=== PATIENT | female | born 1995 | race Two or more races ===

== ENCOUNTER → 2023-09-21 14:04 | Outpatient (REF) | payer BC, SELFPAY ==
[2023-09-21 17:44] LABS: IgG 1045 mg/dl (700-1600)
[2023-09-21 19:08] LABS: Hepatitis B Surface Antibody Negative
[2023-09-21 19:35] LABS: Rubella Negative
== END ==
LOC: REG 14:04
PROVIDERS: ATTENDING PHYSICIAN Anesthesiology
DX: Z23 Encounter for immunization (principal)
CPT/HCPCS: 36415; 82784; 86706; 86735; 86762; 86765; 86787

== ENCOUNTER → 2024-04-09 15:11 | Outpatient (REF) | payer BC, SELFPAY ==
[2024-04-09 17:33] LABS: Hepatitis B Surface Antibody Positive
[2024-04-11 11:49] LABS: Varicella Zoster IgG (VZV) Positive
== END ==
LOC: REG 15:11
PROVIDERS: ATTENDING PHYSICIAN Anesthesiology
DX: Z01.84 Encounter for antibody response examination (principal)
CPT/HCPCS: 36415; 86706; 86787

== ENCOUNTER 2024-09-20 11:41 | Emergency (ER) | payer BC, SELFPAY ==
[2024-09-20] VITALS (7 sets, daily range): BP systolic 92–109; BP diastolic 59–72; BMI 28.7
--- NOTE | 2024-09-20 12:14 | ED.GENMED ---
History of Present Illness
General
Chief Complaint: Abdominal Pain
Source: patient and family
Exam Limitations: none
Time Seen by Provider: 09/20/24 11:59
Nursing documentation reviewed up to this point in time: agreed with
History of Present Illness
History of Present Illness:
28-year-old female with past medical history of lymphoma currently in remission who presents to the emergency department with father for evaluation of abdominal pain with nausea/vomiting/diarrhea. Patient reports that she was in her normal state of
health last night; she recently returned from a trip to the [facility] a few days ago, last night had chicken for dinner but nothing unusual. Woke up around 4 AM with profuse watery nonbloody diarrhea and abdominal pain radiating diffusely. She has
had significant nausea and dry heaves. She says that the symptoms have been persistent throughout the day and so she came to the ER for evaluation. She did take a Zofran at home which provided some improvement in nausea. She denies any
significant headache or neck pain/stiffness. Denies fever. She denies urinary symptoms. She is currently on her menstrual period and has some spotting. She denies similar issues in the past. She denies prior abdominal surgeries. Denies any
known sick contacts; no one else at home is sick after eating dinner last night.
Past History
Past History
ED Past Medical History: Cancer
ED Past Surgical History: Other (Chemo-Port placement)
Social History
Tobacco: Non-smoker
Alcohol: None
Drug: None
Personal: Single
Living: with family
Review of Systems
Review of Systems
All Other Systems: ROS reviewed and negative except as documented in HPI and ROS
Constitutional: Denies fever
Respiratory: Denies trouble breathing
Cardiac: Denies chest pain
ABD/GI: Reports abdominal pain, nausea, vomiting and diarrhea; Denies bloody stools
: Reports bleeding (Spotting); Denies dysuria, frequency or flank pain
Musculoskeletal: Denies neck pain
Neurological: Denies dizzy or headache
Phy Exam
Physical Exam
Physical Exam:
General: Awake, alert, oriented x3; appears mildly uncomfortable but nontoxic
Head: Normocephalic, atraumatic
Eyes: Conjunctiva normal, EOMI, pupils equal round and reactive to light bilaterally
Throat: Airway intact, slightly dry mucous membranes
Neck: Trachea midline, supple without meningismus
Lungs: Clear to auscultation bilaterally, no wheezing, rales, rhonchi
Heart: Tachycardia with regular rhythm, no murmurs, gallops, or rubs; chest wall port in place
Abd: Soft, non distended, diffusely tender somewhat more pronounced right upper quadrant, no palpable masses appreciated
Neuro: No gross deficits
Skin: no rash on the abdomen
Extremities: Warm and well-perfused
Scores
Heart Failure Risk
Heart Failure Risk Score: Not Applicable
Heart Score for Chest Pain Patients
STEMI patient?: Not applicable
Withdrawal Assessment of Alcohol
Withdrawal Assessment Completed?: Not applicable
Course
Orders/Labs/Results
Orders:
Orders
09/20/24 12:13
Electrocardiogram (*1) Urgent
Reason for Study: QTc Monitoring
CT Abd/pelvis W Iv Cont Urgent
Comment:
Reason For Exam: periumbilical abd pain, diffusely TTP; N/V/D
EKG- Treatment ONCE
0.9% Sodium Chloride 1000 ml [Nss] 1,000 ml IV BOLUS
Test Result ONCE
09/20/24 12:57
Morphine Sulfate 4 mg IV NOW STA
Ondansetron Injectable [Zofran] 4 mg IV NOW STA
09/20/24 13:04
COVID-19 Antigen Urgent
Source: Nasal Swab
Complete Blood Count/With Diff Urgent
Comprehensive Metabolic Panel Urgent
HCG, Serum Qualitative Screen Urgent
Lipase Urgent
Influenza A+B Rapid Molecular Urgent
DONALD Source: Nasal Swab
Specimen Description:
09/20/24 14:39
Urinalysis Reflex To Culture Urgent
Date Specimen was Collected: 09/20/24
Time Specimen was Collected: 14:36
Urine Microscopic Reflex Cult Urgent
09/20/24 15:22
Norovirus by PCR Urgent
DONALD Source: Feces/Stool
Specimen Description:
Stool Culture Urgent
DONALD Source: Feces/Stool
Specimen Description:
09/20/24 15:23
0.9% Sodium Chloride 1000 ml [Nss] 1,000 ml IV BOLUS
Morphine Sulfate 2 mg IV NOW STA
09/20/24 15:38
C difficile Antigen & Toxins Routine
DONALD Source: Feces/Stool
Specimen Description:
Giardia/Cryptosporidium Ag Routine
DONALD Source: Feces/Stool
Specimen Description:
Stool For WBC Routine
DONALD Source: Feces/Stool
Specimen Description:
09/20/24 15:39
GASTROINTESTINAL CONSULT Urgent
Consulting Provider: Alondra Dunne
Was physician already notified: Yes
Abnormal Lab Results
09/20/24 09/20/24
13:04 14:39
Absolute Neuts (auto) 8.2 H 10^3/uL
(1.4-6.5)
Absolute Lymphs (auto) 0.3 L 10^3/uL
(1.2-3.4)
Neutrophils % 93.4 H %
(42.2-75.2)
Lymphocytes % 3.1 L %
(20.5-51.1)
Glucose 104 H mg/dl
(70-99)
Urine Ketones 1+ A
(Negative)
Ur Occult Blood Reflex 4+ A
(Negative)
Urine RBC 11-15 A /HPF
(0-2)
Urine Bacteria (Reflex) Few A
(Negative)
Urine Albumin (Reflex) 1+ A
(Neg - Trace)
09/20/24 13:04
09/20/24 13:04
Vital Signs
Initial and Last Documented VS:
Initial Vital Signs
Temp Pulse Resp BP Pulse Ox
36.8 C 130 16 109/72 98
09/20/24 11:46 09/20/24 11:46 09/20/24 11:46 09/20/24 11:46 09/20/24 11:46
Last Documented Vital Signs
Temp Pulse Resp BP Pulse Ox
37.2 C 109 18 94/66 96
09/20/24 14:39 09/20/24 15:30 09/20/24 14:39 09/20/24 15:00 09/20/24 15:30
Procedures
IV Access
Indication: Emergent access required and Physician skill needed
Performed by:: Yoshi Mullen MD
Site:: right forearm
Gauge:: 18G
Ultrasound Guidance: Yes
MDM/Problems Addressed
Differential Diagnosis Includes:
Gastritis/gastroenteritis, pancreatitis, food poisoning, cholelithiasis, cholecystitis, bowel obstruction; appendicitis/diverticulitis somewhat less likely, nephrolithiasis less likely, UTI less likely
MDM/Problems Addressed:
28-year-old female presents to the emergency room for evaluation of abdominal pain associate with nausea/vomiting/diarrhea constant since 4 AM. Tachycardic otherwise normal vitals. Physical exam as above. Plan to place an IV check labs including
a CBC and a CMP, lipase, hCG. Send urinalysis. Will check CT of the abdomen pelvis. Treat with antiemetic, pain medication, IV fluids. EKG for QTc monitoring. Monitor closely reassess after the above.
Initial labs reviewed: CBC no clinically significant abnormalities, CMP within acceptable range. Notably normal LFTs. Lipase normal. hCG negative. Viral swabs negative. Acceptable QTc on EKG. Heart rate improving with fluids and symptom
control. Clinical reassessment patient says she is feeling better. Continue to monitor.
CT shows findings consistent with enterocolitis, no evidence of bowel obstruction, normal-appearing appendix. Suspect likely viral with no fever and nonbloody stools however given recent travel reasonable to send stool studies. Case discussed with
GI they will evaluate at bedside. Fortunately clinically patient is feeling better�heart rate continues to improve.
Discussed with GI�prescription sent to [facility] for outpatient stool studies if patient cannot provide a sample here. Recommended p.o. challenge if patient is tolerating p.o. can discharge with supportive care.
*Radiology
Radiology exam reviewed: radiology read reviewed
*Pulse Oximetry
Patient hypoxic: no (99%)
*EKG
Interpreted by ED Provider?: Yes
Heart Rate: 108
Rate: tachycardiac
Rhythm: sinus and sinus tachycardia
Ivor: normal axis
Interval: normal interval and normal QT interval
QRS Pattern: low voltage
Ischemia: no ischemia
*Critical Care Note
Total Time (30-74mins, 75-104mins- exclusive of procedures): Not Applicable
Data Reviewed
Source: patient and family
Patient Management
Discussion with other providers: Contact Lens Assistant (Discussed with gastroenterology)
ED Attending Note
-
Portions of this chart may have been created with voice recognition software.� Occasional wrong word or��sound alike� substitutions may have occurred due to the inherent limitations of voice recognition software.
Discharge Plan
Departure
Patient with high blood pressure during this ER visit?: No
Discharge Problem:
Enterocolitis
Instructions: Colitis
Prescriptions:
New
ondansetron 4 mg tablet,disintegrating
4 mg PO TIDPRN PRN (Reason: nausea/vomiting) Qty: 14 0RF
Referrals:
Stephanie James MD [Family Provider, Anesthesiology]
Alondra Dunne MD [Active, Gastroenterology] - Call in 1-3 days for appt
Activity Restrictions/Additional Instructions:
Thank you for visiting the Emergency Department at [facility].
1. Please schedule a follow up appointment as directed. Call first thing tomorrow morning to make an appointment.
2. If indicated, please take your medications as instructed and indicated on discharge paperwork.
3. If any of your symptoms do not improve, or persist, or become more severe within 6-12 hours, please return to the emergency department for further care.
4. Please return to the emergency department if you develop a headache, neck pain/stiffness, fever greater than 100.4F, chest pain, shortness of breath, persistent nausea, vomiting, slurred speech, difficulty walking, numbness/tingling, weakness,
signs of infection or any other symptoms that are worrisome to you.
Please call [phone] if you have any questions.
Interventions
Interventions:
*Risk Screen - Suicide Last Done: 09/20/24 11:46
*General Assessment Last Done: 09/20/24 13:08
*Neglect/Abuse Screening Last Done: 09/20/24 11:46
*ED- Fall Risk Assessment Last Done: 09/20/24 13:08
*ED COVID-19 Vaccine History Last Done: 09/20/24 13:08
EB-Hakjee-Qiwcobgreg Assessment Last Done: 09/20/24 13:08
Discharge Date and Time
Print Language: FRENCH
[2024-09-20] MEDS: NSS 1000 IV ×2 (13:00→15:28)
[2024-09-20] MEDS: ZOFRAN 4 MG IV (13:02)
[2024-09-20] MEDS: MORPHINE SULFATE 4 MG IV (13:02)
[2024-09-20 13:24] LABS: % Basophils 0.3 % (0-2); % Eosinophils 0.3 % (0-6); % Immature Granulocytes 0.2 % (0-0.5); % Lymphocytes 3.1 % (20.5-51.1); % Monocytes 2.7 % (1.7-9.3); % Neutrophils 93.4 % (42.2-75.2); Absolute Lymphocytes 0.3 10^3/uL (1.2-3.4); Absolute Monocytes 0.2 10^3/uL (0.1-0.6); Absolute Neutrophils 8.2 10^3/uL (1.4-6.5); Hematocrit 41.7 % (37.0-47.0); Hemoglobin 14.7 g/dL (12.0-16.0); Mean Corp Hgb Conc. 35.3 g/dL (33.0-37.0); Mean Corpuscular Hgb 30.6 pg (27.0-31.0); Mean Corpuscular Volume 86.9 fL (81.0-99.0); Mean Platelet Volume 8.7 fL (7.4-10.4); Nucleated Red Blood Cells % 0 %; Platelet Count 229 10^3/uL (130-400); Red Cell Dist. Width 12.6 % (11.5-14.5); White Blood Cell Count 8.8 10^3/uL (4.8-10.8)
[2024-09-20 13:31] LABS: COVID-19 Antigen Negative (Negative)
[2024-09-20 13:37] LABS: ALT (SGPT) 12 U/L (0-35); AST (SGOT) 20 U/L (14-36); Albumin 4.5 g/dl (3.5-5.0); Alkaline Phosphatase 52 U/L (38-126); Blood Urea Nitrogen 17 mg/dl (7-17); Calcium 8.8 mg/dl (8.4-10.2); Carbon Dioxide 22 mmol/L (22-30); Chloride 107 mmol/L (98-107); Estimated Creatinine Clearance > 125 ml/min; Glucose 104 mg/dl (70-99); HCG, Serum Qualitative Screen Negative; Lipase 76 U/L (23-300); Sodium 137 mmol/L (135-145); Total Bilirubin 1.1 mg/dl (0.2-1.3); Total Protein 7.1 g/dl (6.3-8.2); eGFR > 60.00
[2024-09-20 15:14] LABS: Urine Albumin 1+ (Neg - Trace); Urine Bilirubin Negative (Negative); Urine Character Clear (Clear); Urine Color Yellow; Urine Glucose Negative (Negative); Urine Ketone 1+ (Negative); Urine Leukocyte Negative (Negative); Urine Nitrite Negative (Negative); Urine Occult Blood 4+ (Negative); Urine Urobilinogen Negative (Neg - 1+)
[2024-09-20] MEDS: MORPHINE SULFATE 2 MG IV (15:29)
[2024-09-20 15:33] LABS: Urine Mucus Moderate; Urine Squamous Cell 16-20 /LPF (Few)
[2024-09-20 15:34] LABS: Urine Bacteria Few (Negative); Urine White Cell 0-2 /HPF (0-5)
--- NOTE | 2024-09-20 16:17 | CON.GI ---
Addendum entered and electronically signed by Alondra Dunne MD 09/20/24 17:37:
I saw and examined the patient.
The BLACK TOP SPREADER MACHINE OPERATOR or PA's note was reviewed and I agree with the note.
Comment: 28-year-old female with history of lymphoma status post chemo in 2021 2022, who was recently on vacation in [facility] and came back 2 days ago presenting with acute onset abdominal discomfort, nausea, diarrhea that woke her up from sleep this
morning. No prior GI symptoms, she is on Zepbound in the last 6 months and prior to that Wegovy for weight gain related to steroids. 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. She did eat raw tuna on Monday, rest of the family members without
any GI complaints. Prior to this, no constipation, diarrhea, blood in stool or black stool.No fevers or chills.
CBC, CMP in the emergency room in normal range. CT scan of the abdomen and pelvis showed slight prominence of fluid within small bowel loops and slight prominence of fluid in the colon mainly in the right colon suggestive of enterocolitis.
-Abdominal discomfort, nausea and nonbloody diarrhea, likely related to infectious entero-colitis
No bowel movements while in the emergency room, took Pepto-Bismol in the morning.
If able to keep clear liquids down, okay to be discharged home but if any nausea and vomiting, need to come back to the emergency room.
Start with clear liquid diet, advance to low residue diet as tolerated.
If able to, will collect stool for norovirus, stool cultures, WBC, C. difficile, Cryptosporidium and Giardia. If discharged home, can get these done as outpatient.
Okay for Zofran, avoid antidiarrheals.
Original Note:
Consultation
-
Date/Time Consultation Requested: 09/20/24 1530
Date/Time Consultation Performed: 09/20/24 1610
Requesting Provider: tiera Mullen DO
Performing Provider: ANA Peters, Alondra Dunne MD
Reason for Consultation: enteritis
Medical History
Chief Complaint / HPI
Chief Complaint: abdominal pain and diarrhea
History of Present Illness:
Pt is a 28yo with hx lymphoma with prior treatment, wt gain with prior Wegovy and switch with Zepbound a few months ago with onset of nausea, abdominal pain and diarrhea. She was in [facility] with return on Monday then began overnight with
onset of abdominal pain with diarrhea and nausea without rectal bleeding. Abdominal pain was diffuse but worse upper abdomen. She took Zofran and pepto but noted with persistent symptoms and presents to ER. On admission she is noted with stable
CBC with some elevated neutrophils and stable chemistry. She was given Morphine with some improvement in past but drowsiness but some prominence of fluid in small bowel loops of colon on right suggesting enterocolitis without obstruction. Vital
signs with mild tachycardia and hypotension. She denies any other change in medications. She did eat some raw tuna while on trip.
In review with patient and family no prior GI problems. No hx EGD or colonoscopy in past. No baseline dysphagia, GERD, diarrhea, constipation or prior bleeding.
Past Medical History
Past Medical History: Cancer (lymphoma )
Social History
Tobacco: Non-Smoker
Alcohol: Occasional
Drug: None
Personal: Single
Living: Other (friend)
Employment: Other (med student )
Family History
Family History: Other (distant cousin with colon Ca, no family hx UC or crohns disease)
Allergies / Home Medications
Allergy/AdvReac Type Severity Reaction Status Date / Time
nickel Allergy Itching Verified 09/20/24 11:49
sodium chloride for Allergy N/V Verified 09/20/24 11:49
inhalation (From Saline)
�Medication �Instructions �Recorded
ondansetron 4 mg disintegrating 4 mg PO TIDPRN PRN nausea/vomiting 09/20/24
tablet #14 tabs
Review of Systems
-
History Source: Patient and Family
Constitutional: Reports Weight Gain (with prior lymphoma treatment and has been on GPL1 therapy ) and Fatigue
EENT: Reports No Symptoms
Respiratory: Reports No Symptoms
Cardiac: Reports No Symptoms
Abdomen/GI: Reports Abdominal Pain, Nausea and Diarrhea
: Reports No Symptoms
Musculoskeletal: Reports No Symptoms
Skin: Reports No Symptoms
Neurological: Reports No Symptoms
Endocrine: Reports No Symptoms
Hematologic/Lymphatic: Reports No Symptoms
Vital Signs
Temp Pulse Resp BP Pulse Ox
98.9 F 102 18 98/69 98
09/20/24 14:39 09/20/24 16:00 09/20/24 14:39 09/20/24 16:00 09/20/24 16:00
Physical Exam
Exam
General: Other (sleepy after morphine given )
HEENT: Normocephalic and Anicteric
Respiratory: Clear
Cardiac: Other (tachy )
GI: Soft, Non Distended and Tender (mild diffuse but limited with recent morphine given )
Musculoskeletal: No Clubbing and No Cyanosis
Skin: Warm and Dry
Neuro: Other (sleepy with morphine but arousable )
Psych: Calm
Results
WBC 8.8 10^3/uL (4.8-10.8) 09/20/24 13:04
Hgb 14.7 g/dL (12.0-16.0) 09/20/24 13:04
Hct 41.7 % (37.0-47.0) 09/20/24 13:04
MCV 86.9 fL (81.0-99.0) 09/20/24 13:04
Plt Count 229 10^3/uL (130-400) 09/20/24 13:04
Absolute Neuts (auto) 8.2 10^3/uL (1.4-6.5) H 09/20/24 13:04
Sodium 137 mmol/L (135-145) 09/20/24 13:04
Potassium 4.0 mmol/L (3.5-5.1) 09/20/24 13:04
Chloride 107 mmol/L (98-107) 09/20/24 13:04
Carbon Dioxide 22 mmol/L (22-30) 09/20/24 13:04
BUN 17 mg/dl (7-17) 09/20/24 13:04
Creatinine 0.6 mg/dL (0.6-1.0) 09/20/24 13:04
Calcium 8.8 mg/dl (8.4-10.2) 09/20/24 13:04
Total Bilirubin 1.1 mg/dl (0.2-1.3) 09/20/24 13:
AST 20 U/L (14-36) 09/20/24 13:
ALT 12 U/L (0-35) 09/20/24 13:04
Alkaline Phosphatase 52 U/L (38-126) 09/20/24 13:04
Lipase 76 U/L (23-300) 09/20/24 13:04
Diagnostic Image Results:
[id number] CT Abd/pelvis W Iv Cont
IMPRESSION: Slight prominence of fluid within small bowel loops and the colon, mainly the right colon. Findings are suggestive of enterocolitis, given the clinical history. No evidence for bowel obstruction or free intraperitoneal air. No
significant bowel wall thickening is identified.
Prior GI Procedures:
EGD:
none
Colonoscopy:
none
Assessment / Plan
-
Pt is a 28yo with hx lymphoma with prior treatment, wt gain with prior Wegovy and switch with Zepbound a few months ago with onset of nausea, abdominal pain and diarrhea. She was in [facility] with return on Monday then began overnight with
onset of abdominal pain with diarrhea and nausea without rectal bleeding. Abdominal pain was diffuse but worse upper abdomen. She took Zofran and pepto but noted with persistent symptoms and presents to ER. On admission she is noted with stable
CBC with some elevated neutrophils and stable chemistry. She was given Morphine with some improvement in past but drowsiness but some prominence of fluid in small bowel loops of colon on right suggesting enterocolitis without obstruction. Vital
signs with mild tachycardia and hypotension. She denies any other change in medications. She did eat some raw tuna while on trip.
In review with patient and family no prior GI problems. No hx EGD or colonoscopy in past.
-sudden onset of nausea, abdominal pain and diarrhea
-recent travel to [facility] with ingestion of raw tuna
-CT with concern for enterocolitis
-CBC with elevated neutrophils
-tachycardia/hypotension
-wt gain with use of GPL1 without recent dose change
-hx lymphoma with prior treatment
PLAN:
Etiology of symptoms with concern for infectious etiology -- norovirus vs other, GPL1 related, vs other
cont supportive care s/p 2 liters IVF given in ER
check stool studies I did add c-diff, Giardia/crypto/ and vibrio with recent seafood ingestion (I did sent slip for [facility] if pt discharged and stools not sent)
reviewed with family for admission vs observation as noted with some hypotension and tachycardia --would need to tolerate clears-- if discharged discussed need to return if symptoms not improving
discussed length of illness may vary if infection -few days to longer if GPL1 adding to symptoms
would hold GPL1 until symptoms improved- last dose last week prior to trip
if persistent symptoms for several weeks consider MRE with hx lymphoma
clear diet as tolerated then advance to low fiber/low lactose
all questions answered
updated family, reviewed with ER
-
-
-
Thank you for consultation and allowing me to participate in the patient's care. Please call the intervention analyst GI physician during the after hours with any questions or concerns.
[2024-09-20] MEDS: BENTYL 20 MG PO (17:21)
[2024-09-20] MEDS: ROXICODONE 2.5 MG PO (17:21)
[2024-09-20] MEDS: ZOFRAN ODT (ORALLY DISINTEGRATING) 4 MG PO (17:22)
== END 2024-09-20 17:54 | disposition home or self-care (01) ==
LOC: EMR 11:41
PROVIDERS: CONSULT PHYSICIAN Internal Medicine Gastroenterology; EMERGENCY PHYSICIAN Emergency Medicine; FAMILY PHYSICIAN Anesthesiology
DX: K52.9 Noninfective gastroenteritis and colitis, unspecified (principal); Z85.72 Personal history of non-Hodgkin lymphomas
CPT/HCPCS: 99284; 96374; 96375; 96376; 96361; 74177; 80053; 81003; 81015; 83690; 84703; 85025; 87502; 87811; 93005; Q9967